=== PATIENT | male | born 1945 | race Caucasian/White ===

== ENCOUNTER → 2021-06-28 | Outpatient (CLI) | payer MEDICARE ==
[~2021-06-28] MED LIST: ATOR40TA PO; GABA600 PO; Robaxin-750750 MG PO; TIZA4 PO
== END | disposition home or self-care (01) ==
LOC: LAB SHORT 15:06 → LAB 15:06
DX: D22.39 Melanocytic nevi of other parts of face (principal); D03.59 Melanoma in situ of other part of trunk
CPT/HCPCS: 88305

== ENCOUNTER 2024-02-15 07:49 | Day surgery (SDC) | payer MEDICARE ==
[~2024-02-15] VITALS: Ht 170.2 cm; Wt 80.0 kg
[~2024-02-15 07:49] MED LIST changes: +Balanced Salt Epinephrine Irrigation Solution 500 mL IR SCH; +Lidocaine HCl/Pf 1% 5 ML VIAL XX SCH; +Moxifloxacin HCL 0.5 MG/0.1 ML 0.4MLSYR RIGHTEYE SCH; +NS 500 ML IV ONE; +PHENYLEPHRINE\\TROPICAMIDE\\TETRACAINE OPHTHALMIC DILATING SOLN RIGHTEYE PRN; +Povidone-Iodine 450 DROP/30 ML Solution RIGHTEYE SCH; +Triamcinolone Inj Susp 40 MG / ML 1ML Vial INJ SCH
[2024-02-15] MEDS ORDERED: NS 500 ML IV ONE (08:04)
[2024-02-15] MEDS ORDERED: LEVOTHYROXINE50 MC9 PO (08:09)
[2024-02-15] MEDS ORDERED: AREDS 2 (08:10)
[2024-02-15] MEDS ORDERED: CENTRUM SILVER1 EAC2 (08:11)
[2024-02-15] MEDS ORDERED: 1/2 NS 250ml250 ML (08:12)
[2024-02-15] MEDS ORDERED: ESTER C (08:12)
[2024-02-15] MEDS ORDERED: SUPER B-50 COM1 EACH PO (08:12)
[2024-02-15] MEDS ORDERED: D3 (08:13)
[2024-02-15] MEDS ORDERED: L-Lysine500 M1 (08:13)
[2024-02-15] MEDS ORDERED: Midazolam HCl 1MG / ML 2ML Vial ONE (08:35)
[2024-02-15] MEDS ORDERED: FentaNYL Citrate 50 MCG/ML 2 ML Injection ONE (08:36)
[2024-02-15 09:30] VITALS: BP 97/61
== END 2024-02-15 09:44 | disposition home or self-care (01) ==
LOC: ORSCSDS 07:49
PROVIDERS: Ophthalmology
PROC: 08RJ3JZ Replacement of Right Lens with Synthetic Substitute, Percutaneous Approach (ICD-10-PCS; principal; 2024-02-15 09:00)
DX: H25.813 Combined forms of age-related cataract, bilateral (principal); K21.9 Gastro-esophageal reflux disease without esophagitis; E78.5 Hyperlipidemia, unspecified; E07.9 Disorder of thyroid, unspecified; Z79.899 Other long term (current) drug therapy
CPT/HCPCS: J2250; J3010; J7040; V2632

== ENCOUNTER 2024-08-06 13:03 | Day surgery (SDC) | payer MEDICARE ==
[~2024-08-06] VITALS: Ht 170.2 cm; Wt 77.1 kg
[~2024-08-06 13:03] MED LIST changes: +1/2 NS 250ml250 ML; +AREDS 2; +Atropine Sulfate 0.1 MG/ML 10ML SYR ONE; -Balanced Salt Epinephrine Irrigation Solution 500 mL IR SCH; +CENTRUM SILVER1 EAC2; +D3; +ESTER C; +Glycopyrrolate 0.2 MG/ML 1MLVIAL ONE; +L-Lysine500 M1; +LEVOTHYROXINE50 MC9 PO; +Lactated Ringer's 1,000 ML IV ONE; +Lidocaine 2% 5 ML SDV ONE; +Lidocaine HCl/Pf 1% 5 ML VIAL ONE; -Lidocaine HCl/Pf 1% 5 ML VIAL XX SCH; -Moxifloxacin HCL 0.5 MG/0.1 ML 0.4MLSYR RIGHTEYE SCH; -NS 500 ML IV ONE; +Ondansetron HCl 2 MG / ML 2ML Vial ONE; -PHENYLEPHRINE\\TROPICAMIDE\\TETRACAINE OPHTHALMIC DILATING SOLN RIGHTEYE PRN; -Povidone-Iodine 450 DROP/30 ML Solution RIGHTEYE SCH; +SUPER B-50 COM1 EACH PO; -Triamcinolone Inj Susp 40 MG / ML 1ML Vial INJ SCH; +ePHEDrine Sulfate 50 MG/ML 1ML Injection ONE; +propofoL 50 ML IV ONE
[2024-08-06] MEDS ORDERED: Lactated Ringer's 1,000 ML IV ONE (15:05)
[2024-08-06 16:18] VITALS: BP 123/72
== END 2024-08-06 16:00 | disposition home or self-care (01) ==
LOC: ORSCSDS 13:03
PROVIDERS: Surgery
PROC: 0DBH8ZX Excision of Cecum, Via Natural or Artificial Opening Endoscopic, Diagnostic (ICD-10-PCS; principal; 2024-08-06 14:45)
DX: Z12.11 Encounter for screening for malignant neoplasm of colon (principal); Z86.0100 Personal history of colon polyps, unspecified; D12.0 Benign neoplasm of cecum; K57.30 Diverticulosis of large intestine without perforation or abscess without bleeding; N18.9 Chronic kidney disease, unspecified; K21.9 Gastro-esophageal reflux disease without esophagitis; E78.5 Hyperlipidemia, unspecified; E03.9 Hypothyroidism, unspecified; Z79.899 Other long term (current) drug therapy
CPT/HCPCS: J0461; J2003; J2405; J2704; J7120

== ENCOUNTER 2024-12-08 15:36 | Emergency (ER) | payer MEDICARE ==
[~2024-12-08] VITALS: Ht 175.3 cm; Wt 81.7 kg
[~2024-12-08 15:36] MED LIST changes: -Atropine Sulfate 0.1 MG/ML 10ML SYR ONE; -Glycopyrrolate 0.2 MG/ML 1MLVIAL ONE; -Lactated Ringer's 1,000 ML IV ONE; -Lidocaine 2% 5 ML SDV ONE; -Lidocaine HCl/Pf 1% 5 ML VIAL ONE; -Ondansetron HCl 2 MG / ML 2ML Vial ONE; -ePHEDrine Sulfate 50 MG/ML 1ML Injection ONE; -propofoL 50 ML IV ONE
[2024-12-08 15:42] VITALS: BP 172/78
== END 2024-12-08 17:00 | disposition home or self-care (01) ==
LOC: ER 15:36
DX: S00.83XA Contusion of other part of head, initial encounter (principal); Z79.890 Hormone replacement therapy; Z79.899 Other long term (current) drug therapy; W20.8XXA Other cause of strike by thrown, projected or falling object, initial encounter
CPT/HCPCS: 70450; 99283-25